=== PATIENT | male | born 1975 | race Caucasian/White ===

== ENCOUNTER → 2016-09-06 | Outpatient (CLI) | payer MEDICAID ==
[~2016-09-06] MED LIST: ALBUTEROL0.09 MG/A1 IH; ATIVAN1 MG PO; EPITOL200 MG PO; HYDROCODONE-APA1 TA2 PO; HYDROCODONE1 TABLET PO; KEFLEX500 M1 PO; LORTAB 5/500 501 TAB PO; LORTAB 500 MG-71 TAB PO; MOTRIN600 MG PO; MULTI-VITAMINS1 TAB PO; NICOTINE PATCH;21 MG TD; NORCO 325 MG-51 TAB PO; OXYCODONE 5MG TA5 MG PO; PEN-VK500 MG PO; PENICILLIN-VK500 MG PO; PERCOCET1 TA1 PO; PROTONIX20 MG PO; STOOL SOFTENER240 MG PO; VENTOLIN H0.09 MG/Ac IH; XELODA500 MG PO; ZOFRAN4 MG PO
[2016-09-06 15:52] LABS: BUN 11 mg/dL (7-18)
[2016-09-06 16:00] LABS: GFR (ESTIMATED) 93 ML/MIN (>60)
== END ==
LOC: LAB 13:55
PROVIDERS: Nurse Practitioner Family
DX: G40.909 Epilepsy, unspecified, not intractable, without status epilepticus (principal)

== ENCOUNTER → 2017-03-22 | Outpatient (CLI) | payer MEDICARE ==
[2017-03-22 08:50] LABS: HEMOGLOBIN 16.1 g/dL (14.1-18.0); LYMPH # 1.8 K/mm3 (0.7-4.5); LYMPH % 27.2 % (10-50)
[2017-03-22 09:03] LABS: BUN 5 mg/dL (7-18); GFR (ESTIMATED) 93 ML/MIN (>60)
--- NOTE | 2017-03-22 13:51 | RADIOLOGY REPORT PS360 ---
CT CHEST W/ CONTRAST INDICATION: COLON CA, LIVER METS, LUNG NODULE ORDERING PHYSICIAN: MARCIA PASTOR APRN PATIENT AGE: 41 years COMPARISON: 08/30/2016 TECHNIQUE: Axial images are obtained with contrast. Sagittal and coronal reformatted images are reviewed as well. FINDINGS: No mediastinal or hilar mass or adenopathy. No evidence of aortic aneurysm or central pulmonary embolus. Normal heart size without evidence of pericardial thickening. There are centrilobular emphysematous changes with bullous changes in the upper lobes and scattered areas of scarring. The previously noted nodular opacity in the left lung base laterally is not significantly changed and may be due to an area of postinflammatory scarring. No new nodular lesions are evident. No effusions or infiltrates. IMPRESSION: 1. Centrilobular emphysematous change with bullous changes as before and scattered areas of fibrosis. 2. Nodular opacity in the left lung base probably due to an area of postinflammatory fibrosis. 3. No new nodules evident. IMPRESSION:
--- NOTE | 2017-03-22 14:01 | RADIOLOGY REPORT PS360 ---
CT ABD PELVIS W/ CONTRAST CLINICAL INDICATION: COLON CA, LIVER METS, LUNG NODULE ORDERING PHYSICIAN: MARCIA PASTOR APRN PATIENT AGE: 41 years COMPARISON: 08/30/2016 TECHNIQUE: Axial images obtained with sagittal and coronal reformats. PROCEDURE: Oral Contrast: Redicat IV Contrast: 75 mL's of Isovue-[id number] . FINDINGS: There are postsurgical changes of the liver as previously described. No new liver lesions are evident. The gallbladder, spleen, pancreas, and adrenal glands have an unremarkable appearance. No intra-abdominal mass or abnormal fluid collection is evident. No adenopathy. No intestinal obstruction or free air. Anastomosis is present within the small bowel in the right upper quadrant with some dilatation of that segment but no evidence of intestinal obstruction. There is grade 1 spondylitic spondylolisthesis of L5 on S1. IMPRESSION: 1. Overall stable CT appearance of the abdomen and pelvis. 2. Status post prior hepatic resection of metastasis with no new liver lesions evident.
== END ==
LOC: RAD 03-09 09:00 → LAB 08:20 → RAD 09:00
PROVIDERS: Nurse Practitioner
DX: C18.9 Malignant neoplasm of colon, unspecified (principal); Z03.89 Encounter for observation for other suspected diseases and conditions ruled out; R91.8 Other nonspecific abnormal finding of lung field; C78.7 Secondary malignant neoplasm of liver and intrahepatic bile duct
CPT/HCPCS: Q9967